=== PATIENT | male | born 1955 | race Caucasian/White ===

== ENCOUNTER 2019-04-04 11:38 | Inpatient (IN) | payer MEDICARE ==
[~2019-04-04] VITALS: Ht 170.2 cm; Wt 77.5 kg
[2019-04-04] VITALS (9 sets, daily range): BP systolic 110–124; BP diastolic 79–91
--- NOTE | 2019-04-04 11:44 | ER Report ---
History and Physical Time Seen By MD: 11:41 HPI/ROS CHIEF COMPLAINT: Lightheadedness and confusion HISTORY OF PRESENT ILLNESS: This is a 63-year-old male who presents to the emergency department for lightheadedness and confusion. Patient states that he has a rare form of cancer, carcinoid tumors and carcinoid syndrome, was at [facility] for new IV radiation treatment, then had a left hip biopsy 2 weeks ago, just got results and "now in the marrow, it has metastasized and i am not producing blood". States overall he was feeling well since the biopsy and treatment. He is from [facility], was riding his motorcycle, while he was riding outside of [place] he began to feel lightheaded and confused, he pulled over on the side of the road, tried to call 911, was unable to, a bystander stopped to see if he is okay, subsequently brought him to the emergency department for evaluation. Patient arrives alert and oriented, interacting well, he denies chest pain or shortness of breath, no fevers or chills. He states that he just feels as though he is in a fog. The patient is unable to recall what his baseline hemoglobin and hematocrit are. REVIEW OF SYSTEMS: Constitutional: No fever, no chills. Eyes: No discharge. ENT: No sore throat. Cardiovascular: No chest pain, no palpitations. Respiratory: No cough, no shortness of breath. Gastrointestinal: No abdominal pain, no vomiting. Genitourinary: No hematuria. Musculoskeletal: No back pain. Skin: No rashes. Neurological: As above. Allergies: Coded Allergies: No Known Drug Allergies (Unverified , 04/04/19) Home Meds Reported Medications Amlodipine Besylate (NORVASC) 5 Mg Tablet, 1 TAB PO QDAY, TAB 04/04/19 Lisinopril (LISINOPRIL) 20 Mg Tablet, 20 MG PO QDAY, TAB 04/04/19 Past Medical/Surgical History The patient has a past medical and surgical history of carcinoid tumors and carc inoid tumor syndrome bone marrow biopsy, and hypertension. Constitutional Vital Sign - Last 24 Hours 04/04/19 04/04/19 04/04/19 04/04/19 11:38 11:48 11:48 11:53 Temp 98.5 Pulse 105 119 115 Resp 16 29 B/P (MAP) 113/80 113/90 (98) Pulse Ox 90 90 O2 Delivery Room Air 04/04/19 04/04/19 04/04/19 04/04/19 12:00 12:08 12:23 12:30 Pulse 106 102 Resp 18 B/P (MAP) 116/56 (76) 108/72 (84) Pulse Ox 86 04/04/19 04/04/19 04/04/19 04/04/19 12:38 12:53 13:00 13:08 Pulse 107 105 100 Resp B/P (MAP) 99/69 (79) Pulse Ox 88 88 90 Physical Exam General Appearance: The patient is alert, has no immediate need for airway protection and no signs of toxicity. Eyes: Pupils equal and round no no injection. Pale conjunctiva. ENT, Mouth: Mucous membranes are moist. Lips are pale. Respiratory: There are no retractions, lungs are clear to auscultation. Cardiovascular: Regular rate and rhythm. No murmurs, clicks or rubs. Gastrointestinal: Abdomen is soft and non tender, no masses, bowel sounds normal. Neurological: Alert and oriented 4. Moving all extremities. Following all commands. No focal neuro deficits. GCS 15. Skin: Warm and dry, no rashes. Musculoskeletal: Neck is supple non tender. Extremities are nontender, nonswollen and have full range of motion. DIFFERENTIAL DIAGNOSIS: After history and physical exam differential diagnosis was considered for myocardial infarction, TIA, cranial bleed, sepsis, hematoma, GI bleed, cancer. Medical Decision Making Data Points Result Diagram: 04/04/19 1156 04/04/19 1156 Laboratory Hematology Test 04/04/19 11:53 04/04/19 11:56 Whole Blood Glucose 170 mg/DL (75-110) Red Blood Count 2.33 M/uL (4.00-5.60) Mean Corpuscular Volume 96.3 fL (80.0-96.0) Mean Corpuscular Hemoglobin 33.0 pg (26.0-33.0) Mean Corpuscular Hemoglobin Concent 34.3 g/dL (32.0-36.0) Red Cell Distribution Width 21.0 % (11.5-14.5) Mean Platelet Volume 8.0 fL (7.2-11.1) Neutrophils (%) (Auto) 79.5 % (39.4-72.5) Lymphocytes (%) (Auto) 8.4 % (17.6-49.6) Monocytes (%) (Auto) 11.3 % (4.1-12.4) Eosinophils (%) (Auto) 0.5 % (0.4-6.7) Basophils (%) (Auto) 0.3 % (0.3-1.4) Nucleated RBC Relative Count (auto) 0.8 /100WBC Neutrophils # (Auto) 1.8 K/uL (2.0-7.4) Lymphocytes # (Auto) 0.2 K/uL (1.3-3.6) Monocytes # (Auto) 0.3 K/uL (0.3-1.0) Eosinophils # (Auto) 0.0 K/uL (0.0-0.5) Basophils # (Auto) 0.0 K/uL (0.0-0.1) Nucleated RBC Absolute Count (auto) 0.02 K/uL Sodium Level 142 mmol/L (137-145) Potassium Level 2.8 mmol/L (3.5-5.0) Chloride Level 101 mmol/L (98-107) Carbon Dioxide Level 21 mmol/L (22-30) Blood Urea Nitrogen 17 mg/dl (9-21) Creatinine 1.50 mg/dl (0.66-1.25) Glomerular Filtration Rate Calc 47.6 Random Glucose 162 mg/dl (75-110) Calcium Level 9.8 mg/dl (8.4-10.2) Total Bilirubin 2.1 mg/dl (0.2-1.3) Aspartate Amino Transf (AST/SGOT) 38 U/L (0-35) Alanine Aminotransferase (ALT/SGPT) 49 U/L (0-56) Alkaline Phosphatase 88 U/L (0-126) Troponin I < 0.012 ng/ml Total Protein 7.8 g/dl (6.3-8.2) Albumin 4.8 g/dl (3.5-5.0) Chemistry Test 04/04/19 11:53 04/04/19 11:56 Whole Blood Glucose 170 mg/DL (75-110) White Blood Count 2.3 k/uL (4.5-11.0) Red Blood Count 2.33 M/uL (4.00-5.60) Hemoglobin 7.7 g/dL (14.0-18.0) Hematocrit 22.4 % (42.0-52.0) Mean Corpuscular Volume 96.3 fL (80.0-96.0) Mean Corpuscular Hemoglobin 33.0 pg (26.0-33.0) Mean Corpuscular Hemoglobin Concent 34.3 g/dL (32.0-36.0) Red Cell Distribution Width 21.0 % (11.5-14.5) Platelet Count 129 K/uL (150-450) Mean Platelet Volume 8.0 fL (7.2-11.1) Neutrophils (%) (Auto) 79.5 % (39.4-72.5) Lymphocytes (%) (Auto) 8.4 % (17.6-49.6) Monocytes (%) (Auto) 11.3 % (4.1-12.4) Eosinophils (%) (Auto) 0.5 % (0.4-6.7) Basophils (%) (Auto) 0.3 % (0.3-1.4) Nucleated RBC Relative Count (auto) 0.8 /100WBC Neutrophils # (Auto) 1.8 K/uL (2.0-7.4) Lymphocytes # (Auto) 0.2 K/uL (1.3-3.6) Monocytes # (Auto) 0.3 K/uL (0.3-1.0) Eosinophils # (Auto) 0.0 K/uL (0.0-0.5) Basophils # (Auto) 0.0 K/uL (0.0-0.1) Nucleated RBC Absolute Count (auto) 0.02 K/uL Glomerular Filtration Rate Calc 47.6 Calcium Level 9.8 mg/dl (8.4-10.2) Total Bilirubin 2.1 mg/dl (0.2-1.3) Aspartate Amino Transf (AST/SGOT) 38 U/L (0-35) Alanine Aminotransferase (ALT/SGPT) 49 U/L (0-56) Alkaline Phosphatase 88 U/L (0-126) Troponin I < 0.012 ng/ml Total Protein 7.8 g/dl (6.3-8.2) Albumin 4.8 g/dl (3.5-5.0) EKG/Imaging EKG Interpretation 12 lead EKG: Time of EKG 12:00. Rhythm: Sinus tachycardia, ventricular rate 105 bpm. [place]: normal QRS: normal ST segments: No ST depression or elevation identified. No previous EKGs for comparison. Imaging PATIENT NAME: Abhi Curiel : 1955 MR: [id number] V: [id number] EXAM DATE: ORDERING PHYSICIAN: SANJAY JUAREZ TECHNOLOGIST: Location: [facility] [place] Patient: Abhi Curiel : 1955 Visit/Account:[id number] Date of Sevice: 04/04/2019 Exam type: CHEST PA LAT History: dizziness, hx ca Comparison: None. Findings: Linear stranding in the lung bases may represent scarring versus atelectasis. There is no evidence of focal infiltrates, pleural effusions or pulmonary edema. Cardiac silhouette is normal in size. IMPRESSION: 1. Linear stranding the lung bases may represent scarring versus atelectasis. Report Dictated By: Adwoa Fermin MD at 04/04/2019 12:41 PM Report E-Signed By: Adwoa Fermin MD at 04/04/2019 12:41 PM WSN:[email or web address] ED Course/Re-evaluation Clinical Indication for ER IV: Hydration, IV Access ED Course Patient was admitted to room. A history and physical obtained. Differential diagnoses were considered. An IV was started. A CBC, CMP, troponin were obtained. A 1 L normal saline bolus was given. CBC showing white blood cells 2.3, H&H 7.7 and 22, MCV 96, platelets 129, neutrophils 79.5. A bedside glucose 170, potassium 2.8, creatinine 1.5, total bilirubin 2.1, AST 38, negative troponin. Two-view chest x-ray showing Linear stranding the lung bases may represent scarring versus atelectasis. I did review the results with the patient. He was typed, crossed and screened for 2 units of blood. EKG showing sinus tachycardia. Patient was unable to recall what his baseline H&H is. He does have a call out to the cancer center in [place]. I did review the case with Dr. Marte as noted below, his accepted the patient in the hospitalist services. Patient was agreeable with this plan of care. He was also given 40 mEq by mouth potassium. 20 mEq K franceser. 04/04/2019 1:11:46 pm I did speak with Dr. Marte, the hospitalist on-call, he's except with patient and the hospitalist services for symptomatic anemia, carcinoid tumor and hypokalemia. Decision to Disposition Date: Apr 04, 2019 Decision to Disposition Time: 13:10 Depart Departure Latest Vital Signs Vital Signs Date Time Temp Pulse Resp B/P (MAP) Pulse Ox O2 Delivery O2 Flow Rate FiO2 04/04/19 13:08 100 19 90 04/04/19 13:00 99/69 (79) 04/04/19 11:48 98.5 Room Air Impression: Primary Impression: Symptomatic anemia Additional Impressions: Carcinoid tumor Hypokalemia Condition: Improved Disposition: Admitted from ER Problem Qualifiers Additional Impressions: Carcinoid tumor Carcinoid tumor malignancy status: malignant Carcinoid tumor location: other site Qualified Codes: C7A.098 - Malignant carcinoid tumors of other sites SANJAY JUAREZ COILER-BC Apr 04, 2019 11:44
[2019-04-04] MEDS ORDERED: NS(*) 0.9% 1000 ML BAG 1,000 ML IV ONE (12:00)
[2019-04-04 12:06] LABS: PLATELET COUNT, AUTOMATED 129 K/uL (150-450)
[2019-04-04] MEDS ORDERED: KCL (*) 20 MEQ/100 ML PREMIX 100 ML IV SCH (12:30)
[2019-04-04] MEDS ORDERED: POTASSIUM CHL 20 MEQ TABCR PO SCH (12:30)
--- NOTE | 2019-04-04 12:31 | EKG ---
FACILITY: [facility] PATIENT NAME: KIM VIEIRA : [id number] MR: [id number] V: [id number] EXAM DATE: ORDERING PHYSICIAN: SANJAY JUAREZ TECHNOLOGIST: BRAD Test Reason : DIZZY Blood Pressure : / mmHG Vent. Rate : 105 BPM Atrial Rate : 105 BPM P-R Int : 154 ms QRS Dur : 098 ms QT Int : 386 ms P-R-T Axes : 053 002 047 degrees QTc Int : 510 ms Sinus tachycardia Otherwise normal ECG No previous ECGs available Confirmed by TATIANA RAMIREZ ([id number]) on 04/05/2019 6:04:41 AM Referred By: KUSH Confirmed By:TATIANA RAMIREZ
--- NOTE | 2019-04-04 12:47 | RADIOLOGY IMAGING REPORT ---
FACILITY: [facility] [place] PATIENT NAME: Abhi Curiel : 1955 MR: [id number] V: [id number] EXAM DATE: ORDERING PHYSICIAN: SANJAY JUAREZ TECHNOLOGIST: Location: [facility] Patient: Abhi Curiel : 1955 Visit/Account:[id number] Date of Sevice: 04/04/2019 Exam type: CHEST PA LAT History: dizziness, hx ca Comparison: None. Findings: Linear stranding in the lung bases may represent scarring versus atelectasis. There is no evidence o f focal infiltrates, pleural effusions or pulmonary edema. Cardiac silhouette is normal in size. IMPRESSION: 1. Linear stranding the lung bases may represent scarring versus atelectasis. Report Dictated By: Adwoa Fermin MD at 04/04/2019 12:41 PM Report E-Signed By: Adwoa Fermin MD at 04/04/2019 12:41 PM WSN:[email or web address]
[2019-04-04] MEDS ORDERED: KCL (*) 20 MEQ/100 ML PREMIX 100 ML IV ONE (12:55)
[2019-04-04] MEDS ORDERED: POTASSIUM CHL 20 MEQ TABCR PO ONE (13:00)
[2019-04-04] MEDS ORDERED: LISI20TA29 PO (13:12)
[2019-04-04] MEDS ORDERED: AMLO-101 PO (13:12)
[2019-04-04] MEDS ORDERED: INFLUENZA VIRUS VAC 0.5ML SYR IM ONLY ONE (15:20)
--- NOTE | 2019-04-04 15:27 | History & Physical ---
History of Present Illness Chief Complaint Lightheaded History of Present Illness This patient is traveling on his motorcycle to [place], [place] when he started to experience a feeling of lightheadedness and confusion. He does have a history of carcinoid tumor and is receiving radiation treatment through the [facility]. He had been doing well until this morning when he decided to drive [place] [employer] He made it only [place] of [facility] when he could longer continue. History Problems: (1) Carcinoid tumor Status: Acute (2) Essential hypertension Home Meds Reported Medications Amlodipine Besylate (NORVASC) 5 Mg Tablet, 1 TAB PO QDAY, TAB 04/04/19 Lisinopril (LISINOPRIL) 20 Mg Tablet, 20 MG PO QDAY, TAB 04/04/19 Allergies: Coded Allergies: No Known Drug Allergies (Unverified , 04/04/19) Hx Smoking: No Hx Alcohol Use: Yes Hx Substance Use Disorder: No Review of Systems All Systems Reviewed/Normal: Yes, Except as Noted Neurological: Confusion Exam Vital Signs Vital Signs Date Time Temp Pulse Resp B/P (MAP) Pulse Ox O2 Delivery O2 Flow Rate FiO2 04/04/19 14:40 93 04/04/19 14:29 98.6 91 16 110/79 (89) Room Air Neuro: No Gross deficits Eyes: PERRLA Cardiovascular: Regular Rate and Rhythm Respiratory: Clear to Auscultation GI: Abd Soft and Non-Tender Extremities: No Edema Integumentary: No Cyanosis Medical Decision Making Data Points Result Diagram: 04/04/19 1156 04/04/19 1156 Assessment and Plan Problems: (1) Acute anemia Assessment & Plan: He is symptomatic with this. We are planing to transfuse 2 units of red cells. A repeat CBC is ordered for the morning. (2) Carcinoid tumor Status: Acute Assessment & Plan: He is followed through the [facility]. (3) Essential hypertension Assessment & Plan: He is on chronic treatment with amlodipine and lisinopril, which have both been held. Venous Thromboembolism Antithrombotics Is Pt On Any Antithrombotics?: No Exam Sepsis Risk: No Definite Risk Problem Qualifiers (1) Carcinoid tumor: Carcinoid tumor malignancy status: malignant Carcinoid tumor location: other site Qualified Codes: C7A.098 - Malignant carcinoid tumors of other sites TATIANA RAMIREZ DO Apr 04, 2019 15:27
[2019-04-04] MEDS: NS(*) 0.9% 500 ML BAG 500 ML IV PRN (15:54)
[2019-04-04] MEDS: POTASSIUM CHL 20 MEQ TABCR PO SCH (16:59)
[2019-04-05] VITALS (8 sets, daily range): BP systolic 101–139; BP diastolic 80–96; Ht 170.2 cm; Wt 77.5 kg
[2019-04-05 05:45] LABS: PLATELET COUNT, AUTOMATED 86 K/uL (150-450)
[2019-04-05] MEDS: POTASSIUM CHL 20 MEQ TABCR PO SCH ×2 (08:47→17:53)
[2019-04-05] MEDS ORDERED: LORATADINE 10 MG TAB PO ONE (11:00)
[2019-04-05] MEDS: FILGRASTIM 300 MCG/ML VIAL SC SCH (11:52)
[2019-04-05] MEDS: NS(*) 0.9% 500 ML BAG 500 ML IV PRN (11:53)
--- NOTE | 2019-04-05 13:34 | Hospitalist Progress Note ---
Subjective Progress Notes Subjective He reports feeling improved following PRBC transfusion. We reviewed his PMHx regarding his metastatic carcinoid disease and his prior treatments. Physical Exam Vital Signs Date Time Temp Pulse Resp B/P (MAP) Pulse Ox O2 Delivery O2 Flow Rate FiO2 04/05/19 12:53 98.2 75 14 112/80 04/05/19 08:58 95 04/05/19 08:50 Room Air Intake and Output 04/05/19 07:01 Intake Total 1591 ml Balance 1591 ml Intake Oral 240 ml IV Total 851 ml Blood Product 500 ml # Voids 3 # Bowel Movements 1 General Appearance: Alert, Awake Cardiovascular: Regular Rate and Rhythm Respiratory: Clear to Auscultation GI: Soft and Non-Tender Extremities: Warm, Perfused Result Diagram: 04/05/1951004/05/19510 Assessment and Plan Problems: (1) Acute anemia Assessment & Plan: Due to metastatic involvement of his bone marrow with carcinoid tumors. He was significantly symptomatic with this (especially at this altitude). He did well with the initial transfusion of 2 units of red cells. Will plan on an additional 2 units of PRBCs. He is planning on travelling back home to [place] via motorcycle upon discharge. (2) Carcinoid tumor Status: Acute Assessment & Plan: He has been followed/treated through the [facility]. He states he was recently found to be anemic, thrombocytopenic and had bone marrow biopsy. He reports this showed extensive carcinoid involvement. His plan would be to return home to his primary care physician and oncology to discuss ongoing treatment. Will try to support his counts so that he may be able to travel home. (3) Neutropenia Status: Acute Assessment & Plan: Most likely due to bone marrow involvement of his carcinoid. Will place in protective isolation. Will also try Neupogen to see if we can raise his ANC. Watch lab. (4) Essential hypertension Assessment & Plan: He has been on chronic treatment with amlodipine and lisinopril (both been held). BPs have been in low normal range. Monitor. Exam Sepsis Risk: No Definite Risk Problem Qualifiers (1) Carcinoid tumor: Carcinoid tumor malignancy status: malignant Carcinoid tumor location: other site Qualified Codes: C7A.098 - Malignant carcinoid tumors of other sites CONTRERAS VALIENTE MD Apr 05, 2019 13:34
[2019-04-05] MEDS ORDERED: oxyCODONE HCL 5 MG CAP PO ONE (18:25)
[2019-04-05] MEDS ORDERED: oxyCODONE HCL 5 MG CAP PO PRN (20:25)
[2019-04-06 01:21] VITALS: BP 131/97
[2019-04-06 06:34] LABS: PLATELET COUNT, AUTOMATED 72 K/uL (150-450)
[2019-04-06 07:34] VITALS: BP 123/84
[2019-04-06] MEDS: POTASSIUM CHL 20 MEQ TABCR PO SCH (08:04)
[2019-04-06] MEDS ORDERED: LORATADINE 10 MG TAB PO SCH (09:00)
[2019-04-06] MEDS: FILGRASTIM 300 MCG/ML VIAL SC SCH (10:00)
[2019-04-06 11:49] VITALS: BP 142/99
--- NOTE | 2019-04-06 12:17 | Hospitalist Depart ---
Discharge Summary Reason for Hosp/Final Diag: (1) Acute anemia Hospital Course & Plan: Due to metastatic involvement of his bone marrow with c arcinoid tumors. He was significantly symptomatic with this (especially at this altitude). He received 4 units of red cells. Hgb up from 7.1 to 10.3 He is planning on travelling back home to [place] via motorcycle upon discharge. He is to get a CBC on 04/09 and has follow up with his Oncologist. (2) Neutropenia Status: Acute Hospital Course & Plan: Most likely due to bone marrow involvement of his carcinoid. His ANC got down to 600. After Neupogen, his ANC is about 3500 (3) Carcinoid tumor Status: Acute Hospital Course & Plan: He has been followed/treated through the [facility]. He states he was recently found to be anemic, thrombocytopenic and had bone marrow biopsy. He reports this showed extensive carcinoid involvement. His plan would be to return home to his primary care physician and oncology to discuss ongoing treatment. Will try to support his counts so that he may be able to travel home. (4) Essential hypertension Hospital Course & Plan: He has been on chronic treatment with amlodipine and lisinopril (both been held). BPs have been in low normal range. He is to continue holding them until he sees his PCP. Departure Weight (Pounds): 170 Weight (Ounces): 12.0 Result Diagram: 04/06/1961404/06/19614 Item Value Date Time Hemoglobin 7.7 g/dL *L 04/04/19 1156 Hemoglobin 8.7 g/dL *L 04/05/19 0511 Hemoglobin 10.3 g/dL L 04/06/19 0615 White Blood Count 4.3 k/uL L 04/06/19 0615 White Blood Count 1.2 k/uL *L 04/05/19 0511 White Blood Count 2.3 k/uL L 04/04/19 1156 Platelet Count 129 K/uL L 04/04/19 1156 Platelet Count 86 K/uL L 04/05/19 0511 Platelet Count 72 K/uL L 04/06/19 0615 Creatinine 1.50 mg/dl H 04/04/19 1156 Creatinine 1.00 mg/dl 04/05/19 0511 Creatinine 1.00 mg/dl 04/06/19 0615 Potassium Level 2.8 mmol/L *L 04/04/19 1156 Potassium Level 3.5 mmol/L 04/05/19 0511 Potassium Level 3.5 mmol/L 04/06/19 0615 Sodium Level 140 mmol/L 04/06/19 0615 Sodium Level 139 mmol/L 04/05/19 0511 Sodium Level 142 mmol/L 04/04/19 1156 Blood Urea Nitrogen 17 mg/dl 04/04/19 1156 Blood Urea Nitrogen 16 mg/dl 04/05/19 0511 Blood Urea Nitrogen 16 mg/dl 04/06/19 0615 Carbon Dioxide Level 22 mmol/L 04/06/19 0615 Carbon Dioxide Level 25 mmol/L 04/05/19 0511 Carbon Dioxide Level 21 mmol/L L 04/04/19 1156 Chloride Level 101 mmol/L 04/04/19 1156 Chloride Level 105 mmol/L 04/05/19 0511 Chloride Level 108 mmol/L H 04/06/19 0615 Total Bilirubin 2.1 mg/dl H 04/04/19 1156 Total Bilirubin 1.9 mg/dl H 04/06/19 0615 Aspartate Amino Transf (AST/SGOT) 20 U/L 04/06/19 0615 Alanine Aminotransferase (ALT/SGPT) 41 U/L 04/06/19 0615 Alkaline Phosphatase 61 U/L 04/06/19 0615 Alkaline Phosphatase 88 U/L 04/04/19 1156 Alanine Aminotransferase (ALT/SGPT) 49 U/L 04/04/19 1156 Troponin I < 0.012 ng/ml 04/04/19 1156 Aspartate Amino Transf (AST/SGOT) 38 U/L H 04/04/19 1156 Urine Leukocyte Esterase Negative 04/04/19 1402 Urine RBC 1 /HPF 04/04/19 1402 Urine WBC 1 /HPF 04/04/19 1402 Urine Squamous Epithelial Cells Few /LPF 04/04/19 1402 Urine Urobilinogen Negative mg/dL 04/04/19 1402 Urine Bilirubin Negative 04/04/19 1402 Urine Nitrite Negative 04/04/19 1402 Urine Blood Moderate 04/04/19 1402 Hematocrit 22.4 % *L 04/04/19 1156 Hematocrit 28.7 % L 04/06/19 0615 Hematocrit 24.8 % *L 04/05/19 0511 Neutrophils (%) (Auto) 79.5 % H 04/04/19 1156 Neutrophils (%) (Auto) 50.7 % 04/05/19 0511 Neutrophils (%) (Auto) 82.7 % H 04/06/19 0615 Imaging CXR - 1. Linear stranding the lung bases may represent scarring versus atelectasis. EKG Vent. Rate : 105 BPM Atrial Rate : 105 BPM P-R Int : 154 ms QRS Dur : 098 ms QT Int : 386 ms P-R-T Axes : 053 002 047 degrees QTc Int : 510 ms Sinus tachycardia Otherwise normal ECG No previous ECGs available Confirmed by TATIANA RAMIREZ ([id number]) on 04/05/2019 6:04:41 AM Condition: Improved Discharge: Home Discharge Instructions Home Meds Discontinued Reported Medications Amlodipine Besylate (NORVASC) 5 Mg Tablet, 1 TAB PO QDAY, TAB 04/04/19 Lisinopril (LISINOPRIL) 20 Mg Tablet, 20 MG PO QDAY, TAB 04/04/19 Diet: Regular Activity: As Tolerated Special Instructions: Get a CBC on 04/09 to follow your red and white blood cell counts Follow up with the Drs. Johnson and Adan in 1-2 weeks. Go to the ER for lightheadedness, confusion, fevers. Don't take the lisinopril or amlodipine until cleared by your PCP Venous Thromboembolism Antithrombotics Is Pt On Any Antithrombotics?: No Problem Qualifiers (1) Carcinoid tumor: Carcinoid tumor malignancy status: malignant Carcinoid tumor location: other site Qualified Codes: C7A.098 - Malignant carcinoid tumors of other sites GEOAVNNY PIPER MD Apr 06, 2019 12:17
== END 2019-04-06 11:13 | disposition home or self-care (01) | DRG 809 ==
LOC: ER 11:41 → INTOOBSV 13:19 → MED 13:19 → OBSVTOIN 04-05 11:03
PROVIDERS: ADMIT Family Medicine; ATTEND Family Medicine
PROC: 30233N1 Transfusion of Nonautologous Red Blood Cells into Peripheral Vein, Percutaneous Approach (ICD-10-PCS; principal; 2019-04-04)
DX: D70.1 Agranulocytosis secondary to cancer chemotherapy (principal); C7A.098 Malignant carcinoid tumors of other sites; I10 Essential (primary) hypertension
CPT/HCPCS: 36415; 36416; 71046; 81001; 82040; 82247; 82310; 82374; 82435; 82565; 82947; 82948; 84075; 84132; 84155; 84295; 84450; 84460; 84484; 84520; 85025; 86850; 86900; 86901; 86920; 93005; 96360; 99284; G0378; J1442; J3480; J7030; J7040; P9016